=== PATIENT | male | born 1940 | race Hispanic/Latino ===

== ENCOUNTER 2016-11-22 10:04 | Emergency (ER) | payer OTHER, MEDICARE ==
[2016-11-22] MEDS ORDERED: ULTRAM PO ONE (13:04)
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
[2016-11-22 14:54] VITALS: BP 166/76
[2016-11-22] MEDS ORDERED: ANTIBIOTIC OINT TP ONE (16:00)
== END 2016-11-22 15:00 | disposition home or self-care (01) ==
LOC: ED 10:04
DX: S46.911A Strain of unspecified muscle, fascia and tendon at shoulder and upper arm level, right arm, initial encounter (principal); S86.911A Strain of unspecified muscle(s) and tendon(s) at lower leg level, right leg, initial encounter; S50.811A Abrasion of right forearm, initial encounter; I10 Essential (primary) hypertension; I50.9 Heart failure, unspecified; E11.9 Type 2 diabetes mellitus without complications; M19.90 Unspecified osteoarthritis, unspecified site; I25.10 Atherosclerotic heart disease of native coronary artery without angina pectoris; Z88.0 Allergy status to penicillin; Z90.3 Acquired absence of stomach [part of]; Z90.89 Acquired absence of other organs; Z87.891 Personal history of nicotine dependence; Z79.82 Long term (current) use of aspirin; V89.2XXA Person injured in unspecified motor-vehicle accident, traffic, initial encounter; W22.10XA Striking against or struck by unspecified automobile airbag, initial encounter; Y93.89 Activity, other specified; Y92.89 Other specified places as the place of occurrence of the external cause; Y99.8 Other external cause status
CPT/HCPCS: 99283

== ENCOUNTER 2019-02-13 22:51 | Emergency (ER) | payer MEDICARE, OTHER ==
--- NOTE | 2019-02-14 00:27 | XRay Report ---
LEFT FEMUR 2 VIEWS INDICATION / CLINICAL INFORMATION: Left femur pain COMPARISON: None available. FINDINGS: BONES / JOINT(S): There is a comminuted fracture of the distal femoral shaft at the level of the meta physis there is impaction at the fracture site. Patient has a [id number] amputation on the left. SOFT TISSUES: No significant abnormality. ADDITIONAL FINDINGS: None. Signer Name: Evan Bowers MD Signed: 02/14/2019 12:22 AM Workstation Name: [email or web address]
[2019-02-14] MEDS ORDERED: MORPHINE IM ONE (00:54)
--- NOTE | 2019-02-14 01:02 | Emergency Department Report ---
ED Lower Extremity HPI - General Chief Complaint: Extremity Injury, Lower Stated Complaint: LEFT KNEE PAIN Time Seen by Provider: 02/14/19 00:38 Source: patient, family Mode of arrival: Ambulatory Limitations: Physical Limitation - History of Present Illness Initial Comments: 78 yo M presents to ED with fall from standing and injury to left knee. Pt is s/p left BKA 6 yrs ago due to diabetic wound. Pt was wearing his prosthesis at the time of the fall tonight. Denies any other injuries. MD Complaint: knee injury -: hour(s) (2) Injury: Knee: Left Type of Injury: blunt Severity: severe Improves With: immobilization Worsens With: weight bearing, movement, palpation Context: fall Associated Symptoms: unable to bear weight - Related Data Home Medications Medication Instructions Recorded Confirmed Last Taken Aspirin EC [Halfprin EC] 81 mg PO DAILY 09/02/13 02/01/15 01/25/15 Carvedilol 25 mg PO BID 09/02/13 02/01/15 02/01/15 Gabapentin 300 mg PO DAILY 09/02/13 02/01/15 01/31/15 Lactobacillus Acidophilus 1 each PO DAILY 09/02/13 02/01/15 01/31/15 [Probiotic] Lisinopril 40 mg PO DAILY 09/02/13 02/01/15 01/31/15 Metformin HCl [Metformin] 500 mg PO QPM 09/02/13 02/01/15 01/31/15 Multivitamin [Multi-Vitamin Daily] 1 each PO DAILY 09/02/13 02/01/15 01/31/15 Sitagliptin Phosphate [Januvia] 100 mg PO DAILY 09/02/13 02/01/15 01/31/15 glyBURIDE [Glyburide] 5 mg PO BID 09/02/13 02/01/15 01/31/15 Famotidine 1 tab PO DAILY 01/25/15 02/01/15 01/31/15 Furosemide [Lasix] 5 mg PO QDAY 01/25/15 02/01/15 01/31/15 Glucosamine HCl 1 tab PO DAILY 01/25/15 02/01/15 01/31/15 Plavix 75 mg PO DAILY 01/25/15 02/01/15 01/25/15 Previous Rx's Medication Instructions Recorded Last Taken Type Lovastatin [Altoprev] 40 mg PO QPM #30 tab.er.24h 07/08/15 09/01/15 Rx Acetaminophen/Codeine [Tylenol 1 tab PO Q8H PRN #20 tab 11/22/16 Unknown Rx /Codeine # 3 tab] Capsaicin 42.5 gm TP TID PRN #1 tube 11/22/16 Unknown Rx Cyclobenzaprine [Flexeril] 10 mg PO BID PRN #20 tablet 11/22/16 Unknown Rx Allergies Allergy/AdvReac Type Severity Reaction Status Date / Time Penicillins Allergy Severe HIVES, Verified 11/22/16 10:57 ITCHING ED Review of Systems ROS: Stated complaint: LEFT KNEE PAIN Other details as noted in HPI Comment: All other systems reviewed and negative Musculoskeletal: as per HPI ED Past Medical Hx - Past Medical History Previous Medical History?: Yes Hx Hypertension: Yes Hx Heart Attack/AMI: No Hx Congestive Heart Failure: Yes Hx Diabetes: Yes Hx Deep Vein Thrombosis: No Hx Sickle Cell Disease: No Hx Arthritis: Yes Hx HIV: No Additional medical history: CAD. BLEEDING ULCERS - Surgical History Hx Coronary Stent: Yes (2004) Hx Open Heart Surgery: Yes ([facility]PASS) Hx Pacemaker: No Hx Internal Defibrillator: No Additional Surgical History: left BKA. Perforated ulcer with partial gastrectomy. RIGHT KNEE SURGERY. TONSILLECTOMY - Social History Smoking Status: Former Smoker Substance Use Type: None - Medications Home Medications: Home Medications Medication Instructions Recorded Confirmed Last Taken Type Aspirin EC [Halfprin EC] 81 mg PO DAILY 09/02/13 02/01/15 01/25/15 History Carvedilol 25 mg PO BID 09/02/13 02/01/15 02/01/15 History Gabapentin 300 mg PO DAILY 09/02/13 02/01/15 01/31/15 History Lactobacillus Acidophilus 1 each PO DAILY 09/02/13 02/01/15 01/31/15 History [Probiotic] Lisinopril 40 mg PO DAILY 09/02/13 02/01/15 01/31/15 History Metformin HCl [Metformin] 500 mg PO QPM 09/02/13 02/01/15 01/31/15 History Multivitamin [Multi-Vitamin Daily] 1 each PO DAILY 09/02/13 02/01/15 01/31/15 History Sitagliptin Phosphate [Januvia] 100 mg PO DAILY 09/02/13 02/01/15 01/31/15 History glyBURIDE [Glyburide] 5 mg PO BID 09/02/13 02/01/15 01/31/15 History Lovastatin [Altoprev] 40 mg PO QPM #30 tab.er.24h 12/07/14 02/01/15 01/31/15 Rx Famotidine 1 tab PO DAILY 01/25/15 02/01/15 01/31/15 History Furosemide [Lasix] 5 mg PO QDAY 01/25/15 02/01/15 01/31/15 History Glucosamine HCl 1 tab PO DAILY 01/25/15 02/01/15 01/31/15 History Plavix 75 mg PO DAILY 01/25/15 02/01/15 01/25/15 History Acetaminophen/Codeine [Tylenol 1 tab PO Q8H PRN #20 tab 11/22/16 Unknown Rx /Codeine # 3 tab] Capsaicin 42.5 gm TP TID PRN #1 tube 11/22/16 Unknown Rx Cyclobenzaprine [Flexeril] 10 mg PO BID PRN #20 tablet 11/22/16 Unknown Rx ED Physical Exam - General Limitations: Physical Limitation General appearance: alert, in no apparent distress - Head Head exam: Present: atraumatic, normocephalic - Eye Eye exam: Present: normal appearance - ENT ENT exam: Present: mucous membranes moist - Neck Neck exam: Present: normal inspection - Respiratory Respiratory exam: Present: normal lung sounds bilaterally. Absent: respiratory distress - Cardiovascular Cardiovascular Exam: Present: regular rate, normal rhythm - GI/Abdominal GI/Abdominal exam: Absent: distended - Extremities Exam Extremities exam: Present: other (left BKA present, tenderness to knee) - Neurological Exam Neurological exam: Present: alert, oriented X3 - Psychiatric Psychiatric exam: Present: normal affect, normal mood - Skin Skin exam: Present: warm, dry, intact, normal color ED Course Vital Signs 02/13/19 02/13/19 02/14/19 22:57 23:30 00:40 Temperature 97.5 F L 97.5 F L Pulse Rate 71 71 Respiratory 16 16 Rate Blood Pressure 139/74 139/74 Blood Pressure [Left] O2 Sat by Pulse 96 95 97 Oximetry 02/14/19 02/14/19 02/14/19 00:45 01:00 01:15 Temperature 97.6 F Pulse Rate 65 Respiratory 16 Rate Blood Pressure 145/77 145/77 141/76 Blood Pressure 145/77 [Left] O2 Sat by Pulse 97 96 95 Oximetry 02/14/19 02/14/19 02/14/19 01:30 01:46 02:00 Temperature Pulse Rate Respiratory Rate Blood Pressure 141/76 133/72 133/72 Blood Pressure [Left] O2 Sat by Pulse 97 96 97 Oximetry 02/14/19 02/14/19 02/14/19 02:26 02:30 02:31 Temperature Pulse Rate 56 L Respiratory 16 Rate Blood Pressure 141/76 95/55 Blood Pressure 95/55 [Left] O2 Sat by Pulse 94 98 Oximetry - Reevaluation(s) Reevaluation #1: 02/14/19 02:22 BP dropped following morphine administration. IV fluid bolus ordered. - Consultations Consultation #1: 02/14/19 01:34 Spoke w/ [facility] transfer line. Pt accepted by trauma attending Dr Huggins to the ED for ortho evaluation. 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 Pt transferred to [facility] ED for ortho evaluation of comminuted distal femur fracture. - Differential Diagnosis fracture, contusion Critical care attestation.: If time is entered above; I have spent that time in minutes in the direct care of this critically ill patient, excluding procedure time. ED Disposition Clinical Impression: Closed fracture of distal end of left femur Disposition: DC/TX-70 ANOTHER TYPE HLTHCARE Is pt being admited?: No Condition: Stable Referrals: PRIMARY CARE, [Primary Care Provider] - 3-5 Days Time of Disposition: 01:37
[2019-02-14] MEDS ORDERED: NACL 0.9% 500 ML 500 ML IV ONE (02:23)
[2019-02-14] MEDS ORDERED: NACL 0.9% 500 ML 500 ML ONE (02:24)
[2019-02-14 02:31] VITALS: BP 95/55
== END 2019-02-14 02:48 | disposition other institution (70) ==
LOC: ED 22:51
DX: S72.402A Unspecified fracture of lower end of left femur, initial encounter for closed fracture (principal); W18.30XA Fall on same level, unspecified, initial encounter; Y93.89 Activity, other specified; Y92.89 Other specified places as the place of occurrence of the external cause; Y99.8 Other external cause status
CPT/HCPCS: 73552; 96372; 99285; J2270; J7040

== ENCOUNTER 2019-04-16 14:33 | Inpatient (IN) | payer MEDICARE ==
--- NOTE | 2019-04-16 14:58 | Event Note ---
ED Screening Note Date of service: 04/16/19 Time: 14:56 ED Screening Note: 78 y o male presents with severe watery loose stools, non bloody x 2 days one episode of vomitting DM, HTN, recent leg surgery This initial assessment/diagnostic orders/clinical plan/treatment(s) is/are subject to change based on patients health status, clinical progression and re- assessment by fellow clinical providers in the ED. Further treatment and workup at subsequent clinical providers discretion. Patient/guardian urged not to elope from the ED as their condition may be serious if not clinically assessed and managed. Initial orders include: labs IVF acc eval
[2019-04-16 17:31] LABS: Basophils % (Auto) 0.4 % (0.0-1.8); Eosinophils # (Auto) 0.2 K/mm3 (0.0-0.4); Eosinophils % (Auto) 2.7 % (0.0-4.3); Hematocrit 43.9 % (35.5-45.6); Hemoglobin 14.4 gm/dl (11.8-15.2); Lymphocytes # (Auto) 0.9 K/mm3 (1.2-5.4); Lymphocytes % (Auto) 10.7 % (13.4-35.0); Mean Corpuscular HGB Conc 33 % (32-34); Mean Corpuscular Volume 95 fl (84-94); Monocytes # (Auto) 0.5 K/mm3 (0.0-0.8); Monocytes % (Auto) 6.1 % (0.0-7.3); Platelet Count 303 K/mm3 (140-440); Red Blood Count 4.63 M/mm3 (3.65-5.03); Red Cell Distribution Width 14.1 % (13.2-15.2)
[2019-04-16 17:47] LABS: Albumin 3.9 g/dL (3.9-5); Calcium 9.9 mg/dL (8.4-10.2)
--- NOTE | 2019-04-16 20:39 | Emergency Department Report ---
ED General Adult HPI - General Chief complaint: Nausea/Vomiting/Diarrhea Stated complaint: DEHYDRATED Time Seen by Provider: 04/16/19 20:10 Source: patient Mode of arrival: Wheelchair Limitations: No Limitations - History of Present Illness Initial comments: Is a 78-year-old male that presents emergency room with complaints of dehydration, dry mouth and diarrhea. Patient states had diarrhea 5 days. Patient denies abdominal pain. Patient denies chest pain. Patient denies shortness of breath. Patient denies blood in the stool. Patient denies nausea vomiting. Patient denies recent antibiotic use. Patient states his baseline creatinine is 1.2. -: Sudden, days(s) Consistency: constant Improves with: rest Worsens with: movement Associated Symptoms: loss of appetite. denies: confusion, chest pain, cough, diaphoresis, fever/chills, headaches, malaise, nausea/vomiting, rash, seizure, shortness of breath, syncope, weakness - Related Data Home Medications Medication Instructions Recorded Confirmed Last Taken Aspirin EC [Halfprin EC] 81 mg PO DAILY 09/02/13 04/16/19 01/25/15 Gabapentin 400 mg PO TID 09/02/13 04/16/19 01/31/15 Lactobacillus Acidophilus 1 each PO DAILY 09/02/13 04/16/19 01/31/15 [Probiotic] Lisinopril 10 mg PO DAILY 09/02/13 04/16/19 01/31/15 Metformin HCl [Metformin] 500 mg PO QPM 09/02/13 04/16/19 01/31/15 Multivitamin [Multi-Vitamin Daily] 1 each PO DAILY 09/02/13 04/16/19 01/31/15 Furosemide [Lasix] 20 mg PO QDAY 01/25/15 04/16/19 01/31/15 Apixaban [Eliquis] 5 mg PO BID 04/16/19 04/16/19 Unknown Januvia 100 mg PO DAILY 04/16/19 04/16/19 Unknown Lovastatin [Altoprev] 20 mg PO QPM 04/16/19 04/16/19 Unknown Metoprolol 25 mg PO DAILY 04/16/19 04/16/19 Unknown amLODIPine [Norvasc] 5 mg PO DAILY 04/16/19 04/16/19 Unknown glipiZIDE 5 mg PO DAILY 04/16/19 04/16/19 Unknown Previous Rx's Medication Instructions Recorded Last Taken Type Acetaminophen/Codeine [Tylenol 1 tab PO Q8H PRN #20 tab 11/22/16 Unknown Rx /Codeine # 3 tab] Allergies Allergy/AdvReac Type Severity Reaction Status Date / Time Penicillins Allergy Severe HIVES, Verified 11/22/16 10:57 ITCHING ED Review of Systems ROS: Stated complaint: DEHYDRATED Other details as noted in HPI Constitutional: denies: chills, fever Eyes: denies: eye pain, eye discharge, vision change ENT: denies: ear pain, throat pain Respiratory: denies: cough, shortness of breath, wheezing Cardiovascular: denies: chest pain, palpitations Endocrine: no symptoms reported Gastrointestinal: diarrhea. denies: abdominal pain, nausea Genitourinary: denies: urgency, dysuria Musculoskeletal: denies: back pain, joint swelling, arthralgia Skin: denies: rash, lesions Neurological: denies: headache, weakness, paresthesias Psychiatric: denies: anxiety, depression Hematological/Lymphatic: denies: easy bleeding, easy bruising ED Past Medical Hx - Past Medical History Previous Medical History?: Yes Hx Hypertension: Yes Hx Heart Attack/AMI: No Hx Congestive Heart Failure: Yes Hx Diabetes: Yes Hx Deep Vein Thrombosis: No Hx Sickle Cell Disease: No Hx Arthritis: Yes Hx HIV: No Additional medical history: CAD. BLEEDING ULCERS - Surgical History Past Surgical History?: Yes Hx Coronary Stent: Yes (2004) Hx Open Heart Surgery: Yes ([facility]) Hx Pacemaker: No Hx Internal Defibrillator: No Additional Surgical History: left BKA. Perforated ulcer with partial gastrectomy. RIGHT KNEE SURGERY. TONSILLECTOMY - Family History Family history: no significant - Social History Smoking Status: Never Smoker Substance Use Type: None - Medications Home Medications: Home Medications Medication Instructions Recorded Confirmed Last Taken Type Aspirin EC [Halfprin EC] 81 mg PO DAILY 09/02/13 04/16/19 01/25/15 History Gabapentin 400 mg PO TID 09/02/13 04/16/19 01/31/15 History Lactobacillus Acidophilus 1 each PO DAILY 09/02/13 04/16/19 01/31/15 History [Probiotic] Lisinopril 10 mg PO DAILY 09/02/13 04/16/19 01/31/15 History Metformin HCl [Metformin] 500 mg PO QPM 09/02/13 04/16/19 01/31/15 History Multivitamin [Multi-Vitamin Daily] 1 each PO DAILY 09/02/13 04/16/19 01/31/15 History Furosemide [Lasix] 20 mg PO QDAY 01/25/15 04/16/19 01/31/15 History Acetaminophen/Codeine [Tylenol 1 tab PO Q8H PRN #20 tab 11/22/16 04/16/19 Unknown Rx /Codeine # 3 tab] Apixaban [Eliquis] 5 mg PO BID 04/16/19 04/16/19 Unknown History Januvia 100 mg PO DAILY 04/16/19 04/16/19 Unknown History Lovastatin [Altoprev] 20 mg PO QPM 04/16/19 04/16/19 Unknown History Metoprolol 25 mg PO DAILY 04/16/19 04/16/19 Unknown History amLODIPine [Norvasc] 5 mg PO DAILY 04/16/19 04/16/19 Unknown History glipiZIDE 5 mg PO DAILY 04/16/19 04/16/19 Unknown History ED Physical Exam - General Limitations: No Limitations General appearance: alert, in no apparent distress - Head Head exam: Present: atraumatic, normocephalic - Eye Eye exam: Present: normal appearance - ENT ENT exam: Present: mucous membranes moist - Neck Neck exam: Present: normal inspection - Respiratory Respiratory exam: Present: normal lung sounds bilaterally. Absent: respiratory distress - Cardiovascular Cardiovascular Exam: Present: regular rate, normal rhythm. Absent: systolic murmur, diastolic murmur, rubs, gallop - GI/Abdominal GI/Abdominal exam: Present: soft, normal bowel sounds - Rectal Rectal exam: Present: deferred - Extremities Exam Extremities exam: Present: normal inspection - Back Exam Back exam: Present: normal inspection - Neurological Exam Neurological exam: Present: alert, oriented X3 - Psychiatric Psychiatric exam: Present: normal affect, normal mood - Skin Skin exam: Present: warm, dry, intact, normal color. Absent: rash ED Course Vital Signs 04/16/19 04/16/19 04/16/19 14:56 14:58 22:12 Temperature 97.3 F L Pulse Rate 75 87 91 H Respiratory 18 17 15 Rate Blood Pressure 94/53 124/49 [Right] O2 Sat by Pulse 100 100 98 Oximetry 04/16/19 22:13 Temperature Pulse Rate Respiratory 15 Rate Blood Pressure [Right] O2 Sat by Pulse Oximetry - Reevaluation(s) Reevaluation #1: Evaluation done. Patient found to be hypotensive and hypoxic on initial exam. Patient resting comfortable. Patient will be given fluids. Patient placed on oxygen. 04/16/19 20:20 Reevaluation #2: I discussed all results with patient. I discussed plan of care patient. Patient agrees plan of care and admission. Patient will be admitted to the hospital service. Since oxygen has improved. Patient's blood pressure improved with minimal amount of fluids. Patient's current blood pressure 120/80. 04/16/19 20:59 - Consultations Consultation #1: Hospitalist consult for admission. Hospitalist to admit patient. Bridge orders place. 04/16/19 21:05 ED Medical Decision Making - Lab Data Result diagrams: 04/16/19 16:34 04/16/19 16:34 - EKG Data -: EKG Interpreted by Me EKG shows normal: sinus rhythm, axis, intervals, QRS complexes, ST-T waves Rate: normal - EKG Data Interpretation: [facility] - Medical Decision Making Patient is a 78-year-old male that presents emergency room with complaints of dehydration and 5 days of diarrhea. On initial evaluation patient found to have hypotension and hypoxia. Patient had labs done and were consistent with hyperkalemia and dehydration. Patient also found to have acute on chronic renal insufficiency. Patient given fluids and his blood pressure improved. Patient admitted to the hospitalist service. Patient admitted to the stepdown ICU. - Differential Diagnosis hypotension. Dehydration. Renal insufficiency. Diarrhea. Critical Care Time: Yes Critical care time in (mins) excluding proc time.: 35 Critical care attestation.: If time is entered above; I have spent that time in minutes in the direct care of this critically ill patient, excluding procedure time. Critical Care Time: 35 minutes ED Disposition Clinical Impression: Acute on chronic renal insufficiency, Hypoxia, Hyperkalemia, Metabolic acidosis Hypotension Qualifiers: Hypotension type: unspecified hypotension type Qualified Code(s): I95.9 - Hypotension, unspecified Diarrhea Qualifiers: Diarrhea type: unspecified type Qualified Code(s): R19.7 - Diarrhea, unspecified Disposition: 09 OP ADMIT IP TO THIS HOSP Is pt being admited?: Yes Does the pt Need Aspirin: No Condition: Critical Time of Disposition: 20:59
[2019-04-16] MEDS ORDERED: SODIUM CHLORIDE 0.9% 500 ML 500 ML IV ONE (20:41)
[2019-04-16] MEDS ORDERED: SODIUM CHLORIDE 0.9% 1000 ML 1,000 ML ONE (20:52)
[2019-04-16] MEDS ORDERED: CALCIUM CHLORIDE 1,000 MG in SODIUM CHLORIDE 0.9% 100 ML IV ONE (21:15)
[2019-04-16] MEDS ORDERED: SODIUM POLYSTYRENE 15 GM/60 ML ORAL LIQD PO ONE (21:16)
[2019-04-16] MEDS ORDERED: SODIUM POLYSTYRENE 15 GM/60 ML ORAL LIQD ONE (21:59)
[2019-04-16] MEDS ORDERED: ACETAMINOPHEN 325 MG TAB PO PRN (22:57)
[2019-04-16] MEDS ORDERED: DEXTROSE 50% IN WATER (25GM) 50 ML SYRINGE IV PRN (22:57)
[2019-04-16] MEDS ORDERED: ONDANSETRON 4 MG/2 ML INJ IV PRN (22:57)
[2019-04-16] MEDS ORDERED: MAGNESIUM HYDROXIDE (MOM) ORAL LIQD UDC PO PRN (22:57)
[2019-04-16] MEDS ORDERED: SODIUM CHLORIDE 0.9% 1000 ML 1,000 ML IV SCH (23:00)
--- NOTE | 2019-04-17 02:46 | History and Physical Report ---
History of Present Illness Date of examination: 04/16/19 Date of admission: 04/16/19 21:18 Chief complaint: Diarrhea History of present illness: Patient is a 78-year-old male with known history of diabetes mellitus, peripheral neuropathy, coronary artery disease with CABG in the past, and hyperlipidemia. He presented to the emergency room today complaining of diar jhony over the past few days. He denies any bright red blood per rectum, denies any abdominal pain. Denies any fever or chills. No recent use of antibiotics and no recent travel. He has had some nausea and vomiting and also also had some dry mouth. Upon arrival in the emergency room patient work-up was significant for dehydration, he was slightly hypotensive, and was found to be hyperkalemic on the lab tests. Patient was placed on IV fluid. Past History Past Medical History: CAD, diabetes, hypertension, hyperlipidemia Past Surgical History: CABG, Other (Perforated ulcer with partial gastrectomy. RIGHT KNEE SURGERY. TONSILLECTOMY) Social history: no significant social history Family history: diabetes (Grandfather had diabetes) Medications and Allergies Allergies Allergy/AdvReac Type Severity Reaction Status Date / Time Penicillins Allergy Severe HIVES, Verified 11/22/16 10:57 ITCHING Home Medications Medication Instructions Recorded Confirmed Last Taken Type Aspirin EC [Halfprin EC] 81 mg PO DAILY 09/02/13 04/16/19 01/25/15 History Gabapentin 400 mg PO TID 09/02/13 04/16/19 01/31/15 History Lactobacillus Acidophilus 1 each PO DAILY 09/02/13 04/16/19 01/31/15 History [Probiotic] Lisinopril 10 mg PO DAILY 09/02/13 04/16/19 01/31/15 History Metformin HCl [Metformin] 500 mg PO QPM 09/02/13 04/16/19 01/31/15 History Multivitamin [Multi-Vitamin Daily] 1 each PO DAILY 09/02/13 04/16/19 01/31/15 History Furosemide [Lasix] 20 mg PO QDAY 01/25/15 04/16/19 01/31/15 History Acetaminophen/Codeine [Tylenol 1 tab PO Q8H PRN #20 tab 11/22/16 04/16/19 Unknown Rx /Codeine # 3 tab] Apixaban [Eliquis] 5 mg PO BID 04/16/19 04/16/19 Unknown History Januvia 100 mg PO DAILY 04/16/19 04/16/19 Unknown History Lovastatin [Altoprev] 20 mg PO QPM 04/16/19 04/16/19 Unknown History Metoprolol 25 mg PO DAILY 04/16/19 04/16/19 Unknown History amLODIPine [Norvasc] 5 mg PO DAILY 04/16/19 04/16/19 Unknown History glipiZIDE 5 mg PO DAILY 04/16/19 04/16/19 Unknown History Active Meds: Active Medications Acetaminophen (Tylenol) 650 mg PO Q6H PRN PRN Reason: Pain MILD(1-3)/Fever >100.5/RIOS Dextrose (D50w (25gm) Syringe) 0 ml IV Q30MIN PRN; Protocol PRN Reason: Hypoglycemia Sodium Chloride (Nacl 0.9% 1000 Ml) 1,000 mls @ 125 mls/hr IV DIRECT GISSELL Insulin Human Regular (Humulin R) 0 units SUB-Q ACHS GISSELL; Protocol Magnesium Hydroxide (Milk Of Magnesia) 30 ml PO Q4H PRN PRN Reason: Constipation Ondansetron HCl (Zofran) 4 mg IV Q8H PRN PRN Reason: Nausea And Vomiting Sodium Chloride (Sodium Chloride Flush Syringe 10 Ml) 10 ml IV BID GISSELL Sodium Chloride (Sodium Chloride Flush Syringe 10 Ml) 10 ml IV PRN PRN PRN Reason: LINE FLUSH Review of Systems Gastrointestinal: diarrhea Exam - Constitutional Vitals: Temp Pulse Resp BP Pulse Ox 97.3 F L 87 14 120/61 94 04/16/19 14:56 04/17/19 01:30 04/17/19 01:30 04/17/19 01:30 04/17/19 00:30 General appearance: Present: no acute distress, mild distress - EENT Eyes: Present: PERRL, EOM intact ENT: hearing intact, clear oral mucosa, dentition normal - Neck Neck: Present: supple, normal ROM - Respiratory Respiratory effort: normal Respiratory: bilateral: CTA - Cardiovascular Rhythm: regular Heart Sounds: Present: S1 & S2 - Extremities Extremities: no ischemia, pulses intact, No edema, Full ROM - Abdominal General gastrointestinal: Present: soft, non-tender, non-distended - Integumentary Integumentary: Present: clear, warm, dry - Musculoskeletal Musculoskeletal: strength equal bilaterally, other (Left below-knee amputation) - Psychiatric Psychiatric: appropriate mood/affect, intact judgment & insight, cooperative - Neurologic Neurologic: CNII-XII intact, moves all extremities Results - Labs CBC & Chem 7: 04/17/19 04:38 04/17/19 00:20 Labs: Abnormal lab results 04/16/19 04/16/19 Range/Units 16:34 16:34 MCV 95 H (84-94) fl Lymph % (Auto) 10.7 L (13.4-35.0) % Lymph # 0.9 L (1.2-5.4) K/mm3 Seg Neutrophils % 80.1 H (40.0-70.0) % Sodium 136 L (137-145) mmol/L Potassium 5.9 H (3.6-5.0) mmol/L Carbon Dioxide 20 L (22-30) mmol/L BUN 65 H (9-20) mg/dL Creatinine 1.9 H (0.8-1.5) mg/dL Glucose 131 H (75-100) mg/dL Alkaline Phosphatase 165 H (35-129) units/L Assessment and Plan - Patient Problems (1) Hypotension Current Visit: Yes Status: Acute Qualifiers: Hypotension type: unspecified hypotension type Qualified Code(s): I95.9 - Hypotension, unspecified Plan to address problem: Patient placed on IV fluid I will monitor vital signs closely. (2) Hyperkalemia Current Visit: Yes Status: Acute Plan to address problem: Patient has had calcium gluconate and Kayexalate in the emergency room. Will monitor potassium level and also monitor EKG. (3) CAD (coronary artery disease) Current Visit: No Status: Chronic Plan to address problem: We will continue patient on his routine home medications. He denies any chest pain. (4) Diabetes mellitus Current Visit: No Status: Chronic Plan to address problem: We will monitor Accu-Cheks closely and continue routine home medications. (5) Hyperlipemia Current Visit: No Status: Chronic Plan to address problem: We will monitor lipid profile. Continue routine home medications. (6) Acute on chronic renal insufficiency Current Visit: Yes Status: Acute Plan to address problem: Possibly secondary to the diarrhea. (7) DVT prophylaxis Current Visit: No Status: Acute Plan to address problem: Patient placed on subcutaneous heparin. (8) Full code status Current Visit: Yes Status: Acute
[2019-04-17 05:55] LABS: Basophils % (Auto) 0.6 % (0.0-1.8); Eosinophils # (Auto) 0.3 K/mm3 (0.0-0.4); Eosinophils % (Auto) 6.4 % (0.0-4.3); Hematocrit 38.2 % (35.5-45.6); Hemoglobin 12.7 gm/dl (11.8-15.2); Lymphocytes # (Auto) 1.6 K/mm3 (1.2-5.4); Lymphocytes % (Auto) 32.2 % (13.4-35.0); Mean Corpuscular HGB Conc 33 % (32-34); Mean Corpuscular Volume 95 fl (84-94); Monocytes # (Auto) 0.6 K/mm3 (0.0-0.8); Monocytes % (Auto) 12.8 % (0.0-7.3); Platelet Count 229 K/mm3 (140-440); Red Blood Count 4.01 M/mm3 (3.65-5.03); Red Cell Distribution Width 14.2 % (13.2-15.2)
[2019-04-17 06:08] LABS: INR 1.15 (0.87-1.13)
[2019-04-17 06:09] LABS: Partial Thromboplastin Time 31.6 Sec. (24.2-36.6)
[2019-04-17 06:29] LABS: Calcium 9.6 mg/dL (8.4-10.2)
[2019-04-17] MEDS: INSULIN REGULAR, HUMAN 100 UNITS/1 ML SUB-Q SCH ×4 (08:30→22:07)
[2019-04-17] MEDS: ASPIRIN EC 81 MG TAB PO SCH (09:24)
[2019-04-17] MEDS: APIXABAN 5 MG TAB PO SCH ×2 (09:24→21:02)
[2019-04-17] MEDS: ACETAMINOPHEN W/CODEINE 300-30 MG TAB PO PRN (09:26)
[2019-04-17] MEDS ORDERED: MULTIVITAMIN PO SCH (10:00)
[2019-04-17] MEDS ORDERED: LACTOBACILLUS ACIDOPHILUS PO SCH (10:00)
[2019-04-17] MEDS ORDERED: JANUVIA 100 MG PO SCH (10:00)
[2019-04-17] MEDS: MULTIVITAMINS ,THERAPEUTIC TAB PO SCH (11:21)
[2019-04-17] MEDS: LACTINEX CHEW TAB PO SCH (11:21)
[2019-04-17] MEDS: LINAGLIPTIN 5 MG TAB PO SCH (11:22)
[2019-04-17] MEDS: GABAPENTIN 300 MG CAP PO SCH ×2 (14:31→21:02)
--- NOTE | 2019-04-17 14:37 | Progress Note ---
Assessment and Plan / Hypotension with diarrhea Patient placed on IV fluid, will monitor vital signs closely. monitor BMP, hold BP med cont abx, order stool study / Hyperkalemia, resolved Patient has had calcium gluconate and Kayexalate in the emergency room. Will monitor potassium level and also monitor EKG. / CAD (coronary artery disease) We will continue patient on his routine home medications. He denies any chest pain. / Diabetes mellitus We will monitor with Accu-Cheks closely and continue routine home medications. / Hyperlipemia We will monitor lipid profile. Continue routine home medications. / Acute on chronic renal insufficiency Possibly secondary to the diarrhea. cont iv fluid /Chronic atrial fib - rate controlled, on eliquis / DVT prophylaxis Patient placed on eliquis /Full code status Subjective Date of service: 04/17/19 Interval history: Patient seen and examined c/o multiple diarrhea tolerating diet, denies chest pain family at bedside Objective - Constitutional Vitals: Vital Signs - 12hr 04/17/19 04/17/19 04/17/19 03:31 04:00 04:29 Temperature 98.1 F Pulse Rate 81 76 Pulse Rate [ From Monitor] Respiratory 16 18 18 Rate Blood Pressure 81/41 121/58 O2 Sat by Pulse 95 96 Oximetry 04/17/19 04/17/19 04/17/19 04:31 05:31 06:00 Temperature Pulse Rate 75 70 82 Pulse Rate [ From Monitor] Respiratory 17 15 15 Rate Blood Pressure 121/58 88/27 104/55 O2 Sat by Pulse 96 96 97 Oximetry 04/17/19 04/17/19 04/17/19 06:31 07:00 07:31 Temperature Pulse Rate 80 76 77 Pulse Rate [ From Monitor] Respiratory 15 17 21 Rate Blood Pressure 104/55 98/53 104/55 O2 Sat by Pulse 96 96 97 Oximetry 04/17/19 04/17/19 04/17/19 08:00 08:31 09:00 Temperature 98.0 F Pulse Rate 89 95 H 93 H Pulse Rate [ 90 From Monitor] Respiratory 9 L 15 21 Rate Blood Pressure 110/62 128/53 96/53 O2 Sat by Pulse 99 98 96 Oximetry 04/17/19 04/17/19 04/17/19 09:31 10:00 10:31 Temperature Pulse Rate 88 80 81 Pulse Rate [ From Monitor] Respiratory 21 17 16 Rate Blood Pressure 96/53 84/42 84/42 O2 Sat by Pulse 97 94 96 Oximetry 04/17/19 04/17/19 04/17/19 11:00 11:31 12:00 Temperature Pulse Rate 81 67 70 Pulse Rate [ 72 From Monitor] Respiratory 17 24 18 Rate Blood Pressure 88/48 84/42 112/57 O2 Sat by Pulse 97 98 Oximetry 04/17/19 04/17/19 04/17/19 12:31 13:00 13:31 Temperature Pulse Rate 84 73 82 Pulse Rate [ From Monitor] Respiratory 13 15 19 Rate Blood Pressure 112/57 111/57 111/57 O2 Sat by Pulse 98 97 97 Oximetry 04/17/19 14:00 Temperature Pulse Rate 86 Pulse Rate [ From Monitor] Respiratory 20 Rate Blood Pressure 107/55 O2 Sat by Pulse 98 Oximetry General appearance: Present: no acute distress, well-nourished - EENT Eyes: PERRL, EOM intact ENT: hearing intact, clear oral mucosa Ears: bilateral: normal - Neck Neck: supple, normal ROM - Respiratory Respiratory effort: normal Respiratory: bilateral: CTA - Cardiovascular Rhythm: regular Heart Sounds: Present: S1 & S2. Absent: gallop, rub Extremities: pulses intact, No edema, normal color, Full ROM Extremity abnormal: other (left BKA) - Gastrointestinal General gastrointestinal: Present: soft, non-tender, non-distended, normal bowel sounds - Integumentary Integumentary: clear, warm, dry - Musculoskeletal Musculoskeletal: 1, strength equal bilaterally - Neurologic Neurologic: moves all extremities - Psychiatric Psychiatric: memory intact, appropriate mood/affect, intact judgment & insight - Labs CBC & Chem 7: 04/17/19 04:38 04/18/19 06:57 Labs: Abnormal lab results 04/16/19 04/16/19 04/17/19 Range/Units 16:34 16:34 04:38 MCV 95 H 95 H (84-94) fl Lymph % (Auto) 10.7 L (13.4-35.0) % [place] % (Auto) 12.8 H (0.0-7.3) % Eos % (Auto) 6.4 H (0.0-4.3) % Lymph # 0.9 L (1.2-5.4) K/mm3 Seg Neutrophils % 80.1 H (40.0-70.0) % INR (0.87-1.13) Sodium 136 L (137-145) mmol/L Potassium 5.9 H (3.6-5.0) mmol/L Chloride (98-107) mmol/L Carbon Dioxide 20 L (22-30) mmol/L BUN 65 H (9-20) mg/dL Creatinine 1.9 H (0.8-1.5) mg/dL Glucose 131 H (75-100) mg/dL POC Glucose (70-105) Alkaline Phosphatase 165 H (35-129) units/L 04/17/19 04/17/19 04/17/19 Range/Units 04:38 04:38 08:04 MCV (84-94) fl Lymph % (Auto) (13.4-35.0) % [place] % (Auto) (0.0-7.3) % Eos % (Auto) (0.0-4.3) % Lymph # (1.2-5.4) K/mm3 Seg Neutrophils % (40.0-70.0) % INR 1.15 H (0.87-1.13) Sodium (137-145) mmol/L Potassium (3.6-5.0) mmol/L Chloride 110.3 H (98-107) mmol/L Carbon Dioxide 14 L (22-30) mmol/L BUN 70 H (9-20) mg/dL Creatinine 2.5 H (0.8-1.5) mg/dL Glucose (75-100) mg/dL POC Glucose 108 H (70-105) Alkaline Phosphatase (35-129) units/L 04/17/19 Range/Units 12:14 MCV (84-94) fl Lymph % (Auto) (13.4-35.0) % [place] % (Auto) (0.0-7.3) % Eos % (Auto) (0.0-4.3) % Lymph # (1.2-5.4) K/mm3 Seg Neutrophils % (40.0-70.0) % INR (0.87-1.13) Sodium (137-145) mmol/L Potassium (3.6-5.0) mmol/L Chloride (98-107) mmol/L Carbon Dioxide (22-30) mmol/L BUN (9-20) mg/dL Creatinine (0.8-1.5) mg/dL Glucose (75-100) mg/dL POC Glucose 128 H (70-105) Alkaline Phosphatase (35-129) units/L
[2019-04-17] MEDS: metroNIDAZOLE 500 MG TAB PO SCH ×2 (16:10→21:01)
[2019-04-17] MEDS: levoFLOXacin 250 MG TAB PO SCH (16:11)
[2019-04-17] MEDS ORDERED: LOVASTATIN 20 MG PO SCH (18:00)
[2019-04-17] MEDS: PRAVASTATIN 20 MG TAB PO SCH (21:01)
[2019-04-18] MEDS: SODIUM CHLORIDE 0.9% 1000 ML 1,000 ML IV SCH ×2 (02:45→13:01)
[2019-04-18] MEDS: metroNIDAZOLE 500 MG TAB PO SCH ×3 (05:52→21:22)
[2019-04-18 08:27] LABS: Calcium 8.5 mg/dL (8.4-10.2)
[2019-04-18] MEDS ORDERED: GABAPENTIN 400 MG CAP PO SCH ×2 (09:00→11:34)
[2019-04-18] MEDS: INSULIN REGULAR, HUMAN 100 UNITS/1 ML SUB-Q SCH ×4 (09:05→22:58)
[2019-04-18] MEDS: ASPIRIN EC 81 MG TAB PO SCH (09:06)
[2019-04-18] MEDS: APIXABAN 5 MG TAB PO SCH ×2 (09:06→21:22)
[2019-04-18] MEDS: LACTINEX CHEW TAB PO SCH (09:06)
[2019-04-18] MEDS: LINAGLIPTIN 5 MG TAB PO SCH (09:07)
[2019-04-18] MEDS: levoFLOXacin 250 MG TAB PO SCH (09:07)
[2019-04-18] MEDS: MULTIVITAMINS ,THERAPEUTIC TAB PO SCH (09:07)
[2019-04-18] MEDS ORDERED: GABAPENTIN 100 MG CAP PO SCH (11:45)
--- NOTE | 2019-04-18 13:59 | Progress Note ---
Assessment and Plan / Hypotension with diarrhea Patient placed on IV fluid, will monitor vital signs closely. monitor BMP, cont to hold BP med cont abx, ordered stool study - will follow / Hyperkalemia, resolved Patient has had calcium gluconate and Kayexalate in the emergency room. monitor potassium level and also monitor EKG. / CAD (coronary artery disease) continue patient on his routine home medications. He denies any chest pain. / Diabetes mellitus type 2 monitor with Accu-Cheks closely and continue routine home medications. / Hyperlipemia Continue routine home medications. / Acute on ? chronic renal insufficiency Possibly secondary to the diarrhea - vasomotor nephropathy. 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 he was told his cr is 1.3 /Chronic atrial fib - rate controlled, on eliquis / DVT prophylaxis Patient placed on eliquis /Full code status Disposition: home when renal function stabilizes Subjective Date of service: 04/18/19 Interval history: Patient seen and examined resolved diarrhea tolerating diet, denies chest pain family at bedside Objective - Exam Narrative Exam: General appearance: Present: no acute distress, well-nourished - EENT Eyes: PERRL, EOM intact ENT: hearing intact, clear oral mucosa Ears: bilateral: normal - Neck Neck: supple, normal ROM - Respiratory Respiratory effort: normal Respiratory: bilateral: CTA - Cardiovascular Rhythm: regular Heart Sounds: Present: S1 & S2. Absent: gallop, rub Extremities: pulses intact, No edema, normal color, Full ROM Extremity abnormal: other (left BKA) - Gastrointestinal General gastrointestinal: Present: soft, non-tender, non-distended, normal bowel sounds - Integumentary Integumentary: clear, warm, dry - Musculoskeletal Musculoskeletal: 1, strength equal bilaterally - Neurologic Neurologic: moves all extremities - Psychiatric Psychiatric: memory intact, appropriate mood/affect, intact judgment & insight - Constitutional Vitals: Vital Signs - 12hr 04/18/19 04/18/19 04/18/19 04:45 07:45 08:02 Temperature 98.0 F 98.6 F Pulse Rate 67 62 Respiratory 18 18 18 Rate Blood Pressure 119/52 128/55 O2 Sat by Pulse 97 97 96 Oximetry 04/18/19 04/18/19 10:00 12:03 Temperature 98.2 F Pulse Rate 64 72 Respiratory 18 Rate Blood Pressure 135/62 O2 Sat by Pulse 98 Oximetry - Labs CBC & Chem 7: 04/17/19 04:38 04/19/19 00:48 Labs: Abnormal lab results 04/17/19 04/17/19 04/18/19 Range/Units 16:51 23:30 06:57 Chloride 110.6 H (98-107) mmol/L Carbon Dioxide 15 L (22-30) mmol/L BUN 68 H (9-20) mg/dL Creatinine 2.1 H (0.8-1.5) mg/dL Glucose 130 H (75-100) mg/dL POC Glucose 133 H 124 H (70-105) 04/18/19 04/18/19 Range/Units 07:57 12:15 Chloride (98-107) mmol/L Carbon Dioxide (22-30) mmol/L BUN (9-20) mg/dL Creatinine (0.8-1.5) mg/dL Glucose (75-100) mg/dL POC Glucose 136 H 186 H (70-105)
[2019-04-18] MEDS: GABAPENTIN 100 MG CAP PO SCH ×2 (15:19→21:22)
[2019-04-18] MEDS: ACETAMINOPHEN W/CODEINE 300-30 MG TAB PO PRN (21:22)
[2019-04-18] MEDS: PRAVASTATIN 20 MG TAB PO SCH (21:22)
[2019-04-19 01:28] LABS: Calcium 8.3 mg/dL (8.4-10.2)
[2019-04-19] MEDS: metroNIDAZOLE 500 MG TAB PO SCH ×3 (06:38→21:36)
[2019-04-19] MEDS: SODIUM CHLORIDE 0.9% 1000 ML 1,000 ML IV SCH (06:39)
[2019-04-19] MEDS: ASPIRIN EC 81 MG TAB PO SCH (10:26)
[2019-04-19] MEDS: LACTINEX CHEW TAB PO SCH (10:26)
[2019-04-19] MEDS: MULTIVITAMINS ,THERAPEUTIC TAB PO SCH (10:26)
[2019-04-19] MEDS: levoFLOXacin 250 MG TAB PO SCH (10:26)
[2019-04-19] MEDS: APIXABAN 5 MG TAB PO SCH ×2 (10:26→21:37)
[2019-04-19] MEDS: LINAGLIPTIN 5 MG TAB PO SCH (10:26)
[2019-04-19] MEDS: amLODIPine 5 MG TAB PO SCH (10:26)
[2019-04-19] MEDS: GABAPENTIN 100 MG CAP PO SCH ×3 (10:30→21:36)
--- NOTE | 2019-04-19 12:11 | Consultation ---
History of Present Illness - Reason for Consult Consult date: 04/19/19 acute renal failure, hyperkalemia - History of Present Illness the patient is a 78 YO male with known history of DM type 2, Hypertension, HLD, peripheral neuropathy, CAD s/p CABG in the past and L BKA who presented to [facility] emergency room on 04/16 complaining of diarrhea of few days duration. Pt had several episodes of non-bloody loose stools. He denies any melena, N, V, abdominal pain, fever, chills, rash, dizziness, syncope, leg swelling, cp, recent use of antibiotics or recent travel. He was found to have hypotension, DELORIS and hyperkalemia. His symptoms have improved now. Nephrology was consulted for further evaluation. Past History Past Medical History: CAD, diabetes, hypertension, hyperlipidemia Past Surgical History: CABG, Other (Perforated ulcer with partial gastrectomy. RIGHT KNEE SURGERY. TONSILLECTOMY) Social history: no significant social history Family history: diabetes (Grandfather had diabetes) Medications and Allergies Allergies Allergy/AdvReac Type Severity Reaction Status Date / Time Penicillins Allergy Severe HIVES, Verified 11/22/16 10:57 ITCHING Home Medications Medication Instructions Recorded Confirmed Last Taken Type Aspirin EC [Halfprin EC] 81 mg PO DAILY 09/02/13 04/16/19 01/25/15 History Gabapentin 400 mg PO TID 09/02/13 04/16/19 01/31/15 History Lactobacillus Acidophilus 1 each PO DAILY 09/02/13 04/16/19 01/31/15 History [Probiotic] Lisinopril 10 mg PO DAILY 09/02/13 04/16/19 01/31/15 History Metformin HCl [Metformin] 500 mg PO QPM 09/02/13 04/16/19 01/31/15 History Multivitamin [Multi-Vitamin Daily] 1 each PO DAILY 09/02/13 04/16/19 01/31/15 History Furosemide [Lasix] 20 mg PO QDAY 01/25/15 04/16/19 01/31/15 History Acetaminophen/Codeine [Tylenol 1 tab PO Q8H PRN #20 tab 11/22/16 04/16/19 Unknown Rx /Codeine # 3 tab] Apixaban [Eliquis] 5 mg PO BID 04/16/19 04/16/19 Unknown History Januvia 100 mg PO DAILY 04/16/19 04/16/19 Unknown History Lovastatin [Altoprev] 20 mg PO QPM 04/16/19 04/16/19 Unknown History Metoprolol 25 mg PO DAILY 04/16/19 04/16/19 Unknown History amLODIPine [Norvasc] 5 mg PO DAILY 04/16/19 04/16/19 Unknown History glipiZIDE 5 mg PO DAILY 04/16/19 04/16/19 Unknown History Active Meds: Active Medications Acetaminophen (Tylenol) 650 mg PO Q6H PRN PRN Reason: Pain MILD(1-3)/Fever >100.5/RIOS Acetaminophen/Codeine Phosphate (Tylenol #3) 1 tab PO Q8H PRN PRN Reason: Pain, Moderate (4-6) Last Admin: 04/18/19 21:22 Dose: 1 tab Documented by: Amlodipine Besylate (Amlodipine) 5 mg PO DAILY [facility] Last Admin: 04/19/19 10:26 Dose: 5 mg Documented by: Apixaban (Eliquis) 5 mg PO BID [facility]; Protocol Last Admin: 04/19/19 10:26 Dose: 5 mg Documented by: Aspirin (Halfprin Ec) 81 mg PO DAILY [facility] Last Admin: 04/19/19 10:26 Dose: 81 mg Documented by: Dextrose (D50w (25gm) Syringe) 0 ml IV Q30MIN PRN; Protocol PRN Reason: Hypoglycemia Gabapentin (Gabapentin) 100 mg PO TID [facility] Last Admin: 04/19/19 10:30 Dose: 100 mg Documented by: Sodium Chloride (Nacl 0.9% 1000 Ml) 1,000 mls @ 50 mls/hr IV DIRECT GISSELL Last Admin: 04/19/19 06:39 Dose: 100 mls/hr Documented by: Insulin Human Regular (Humulin R) 0 units SUB-Q ACHS GISSELL; Protocol Last Admin: 04/18/19 22:58 Dose: Not Given Documented by: Lactobacillus Acidophilus (Lactinex) 1 each PO QDAY [facility] Last Admin: 04/19/19 10:26 Dose: 1 each Documented by: Levofloxacin (Levaquin) 250 mg PO Q24HR [facility] Last Admin: 04/19/19 10:26 Dose: 250 mg Documented by: Linagliptin (Tradjenta) 5 mg PO QDAY [facility] Last Admin: 04/19/19 10:26 Dose: 5 mg Documented by: Magnesium Hydroxide (Milk Of Magnesia) 30 ml PO Q4H PRN PRN Reason: Constipation Metronidazole (Flagyl) 500 mg PO Q8HR [facility]; Protocol Last Admin: 04/19/19 06:38 Dose: 500 mg Documented by: Multivitamins (Theragran Tab) 1 each PO DAILY [facility] Last Admin: 04/19/19 10:26 Dose: 1 each Documented by: Ondansetron HCl (Zofran) 4 mg IV Q8H PRN PRN Reason: Nausea And Vomiting Pravastatin Sodium (Pravachol) 20 mg PO QHS [facility] Last Admin: 04/18/19 21:22 Dose: 20 mg Documented by: Sodium Chloride (Sodium Chloride Flush Syringe 10 Ml) 10 ml IV BID [facility] Last Admin: 04/18/19 21:23 Dose: 10 ml Documented by: Sodium Chloride (Sodium Chloride Flush Syringe 10 Ml) 10 ml IV PRN PRN PRN Reason: LINE FLUSH Review of Systems Constitutional: no weight loss, no weight gain, no fever, no chills, no anorexia, no weakness, no poor appetite Cardiovascular: high blood pressure, no chest pain, no orthopnea, no edema, no lightheadedness, no shortness of breath, no leg edema Respiratory: no cough, no cough with sputum, no hemoptysis, no shortness of breath, no dyspnea on exertion Gastrointestinal: diarrhea, no abdominal pain, no nausea, no vomiting, no BRBPR, no melena, no hematochezia Genitourinary Male: no dysuria, no hematuria Rectal: no bleeding Musculoskeletal: no morning stiffness, no muscle weakness, no muscle cramps Integumentary: no rash, no redness, no sores, no wounds Neurological: no seizures, no syncope, no convulsions, no aphasia, no change in speech, no change in mentation, no confusion, no memory loss Exam - Vital Signs Vital signs: Vital Signs Temp Pulse Resp Pulse Ox 97.3 F L 75 18 100 04/16/19 14:56 04/16/19 14:56 04/16/19 14:56 04/16/19 14:56 - General Appearance General appearance: well-developed, well-nourished, appears stated age, other (not in distress) EENT: ATNC, PERRL, mucous membranes moist, hearing intact, vision intact Neck: Present: neck supple, trachea midline Respiratory: Clear to Ascultation Heart: S1S2, no murmurs Gastrointestinal: Present: normoactive bowel sounds. Absent: tenderness, distended Integumentary: no rash, warm and dry Neurologic: no focal deficit, no asterixis, alert and oriented x3 Musculoskeletal: Present: other (L BKA) Psychiatric: cooperative Results - Lab Results 04/17/19 04:38 04/19/19 00:48 Most recent lab results Calcium 8.3 mg/dL (8.4-10.2) L 04/19/19 00:48 - Image Kidney/bladder ultrasound: pending Assessment and Plan 1. Acute kidney injury: Vasomotor DELORIS in the setting of volume depletion and hypotension. Urine studies and Renal US ordered. Continue IV fluids. Monitor renal function. Avoid nephrotoxic agents. Meds dosage based on GFR. 2. FEN: Hyperkalemia, improved. Metabolic acidosis, monitor. Monitor lytes. 3. Hypotension: BP is better. 4. Diarrhea. 5. CAD (coronary artery disease): Continue his home medications. 6. Chronic atrial fib: Rate controlled, on Eliquis. 7. DM-2. 8. Hypertension: Monitor BP.
[2019-04-19] MEDS: INSULIN REGULAR, HUMAN 100 UNITS/1 ML SUB-Q SCH ×4 (13:28→23:14)
--- NOTE | 2019-04-19 15:48 | Progress Note ---
Assessment and Plan / Hypotension with diarrhea Patient placed on IV fluid, will monitor vital signs closely. monitor BMP, cont to hold BP med cont abx, ordered stool study - will follow / Hyperkalemia, resolved Patient has had calcium gluconate and Kayexalate in the emergency room. monitor potassium level and also monitor EKG. / CAD (coronary artery disease) continue patient on his routine home medications. He denies any chest pain. / Diabetes mellitus type 2 monitor with Accu-Cheks closely and continue routine home medications. / Hyperlipemia Continue routine home medications. / Acute on ? chronic renal insufficiency Possibly secondary to the diarrhea - vasomotor nephropathy. cont iv fluid if no improve - consult nephrology patient states during his last f/u with enrollment specialist he was told his cr is 1.3 /Chronic atrial fib - rate controlled, on eliquis / DVT prophylaxis Patient placed on eliquis /Full code status Disposition: home when renal function stabilizes Subjective Date of service: 04/19/19 Interval history: Patient seen and examined resolved diarrhea tolerating diet, denies chest pain family at bedside Objective - Exam Narrative Exam: General appearance: Present: no acute distress, well-nourished - EENT Eyes: PERRL, EOM intact ENT: hearing intact, clear oral mucosa Ears: bilateral: normal - Neck Neck: supple, normal ROM - Respiratory Respiratory effort: normal Respiratory: bilateral: CTA - Cardiovascular Rhythm: regular Heart Sounds: Present: S1 & S2. Absent: gallop, rub Extremities: pulses intact, No edema, normal color, Full ROM Extremity abnormal: other (left BKA) - Gastrointestinal General gastrointestinal: Present: soft, non-tender, non-distended, normal bowel sounds - Integumentary Integumentary: clear, warm, dry - Musculoskeletal Musculoskeletal: 1, strength equal bilaterally - Neurologic Neurologic: moves all extremities - Psychiatric Psychiatric: memory intact, appropriate mood/affect, intact judgment & insight - Constitutional Vitals: Vital Signs - 12hr 04/19/19 04/19/19 08:03 08:17 Temperature 97.6 F Pulse Rate 60 Respiratory 18 Rate Blood Pressure 175/80 - Labs CBC & Chem 7: 04/17/19 04:38 04/19/19 00:48 Labs: Abnormal lab results 04/18/19 04/18/19 04/19/19 Range/Units 16:15 20:55 00:48 Chloride 110.5 H (98-107) mmol/L Carbon Dioxide 17 L (22-30) mmol/L BUN 46 H (9-20) mg/dL Creatinine 1.7 H (0.8-1.5) mg/dL Glucose 151 H (75-100) mg/dL POC Glucose 157 H 154 H (70-105) Calcium 8.3 L (8.4-10.2) mg/dL 04/19/19 Range/Units 12:30 Chloride (98-107) mmol/L Carbon Dioxide (22-30) mmol/L BUN (9-20) mg/dL Creatinine (0.8-1.5) mg/dL Glucose (75-100) mg/dL POC Glucose 210 H (70-105) Calcium (8.4-10.2) mg/dL
[2019-04-19 18:02] LABS: Bilirubin,Urine NEG (Negative); Blood,Urine NEG (Negative); Color,Urine Yellow (Yellow); RBC,Urine < 1.0 /HPF (0.0-6.0); Urobilinogen,Urine < 2.0 mg/dL (<2.0)
[2019-04-19 18:07] LABS: Creatinine,Urine 35.3 mg/dL (0.1-20.0)
[2019-04-19] MEDS ORDERED: hydrALAZINE 20 MG/1 ML INJ IV PRN (21:06)
[2019-04-19] MEDS: PRAVASTATIN 20 MG TAB PO SCH (21:36)
[2019-04-19] MEDS ORDERED: SODIUM CHLORIDE 0.45% 1000 ML 1,000 ML IV SCH (22:00)
--- NOTE | 2019-04-20 01:38 | Ultrasound Report ---
Renal ultrasound. 04/20/2019. HISTORY: Acute renal failure. FINDINGS: Right kidney measures 11.3 cm. Cortex measures 1.3 cm. Left kidney measures 12.5 cm. Cortex measures 2 cm. An indeterminate hypoechoic lesion is seen at the upper pole of the left kidney measuring 1.8 cm. Cortical echogenicity is normal. Negative for obstruction. The bladder contains moderate urine. IMPRESSION: 1. Negative for obstruction. 2. Indeterminate hypoechoic area upper pole left kidney. This could be better evaluated with multipha se CT when renal function returns to normal. Signer Name: Joce Dorman MD Signed: 04/20/2019 1:34 AM Workstation Name: [id number]
[2019-04-20] MEDS: metroNIDAZOLE 500 MG TAB PO SCH ×2 (06:04→13:05)
[2019-04-20 07:52] LABS: BUN/Creatinine Ratio 23; Blood Urea Nitrogen 25 mg/dL (9-20); Calcium 8.6 mg/dL (8.4-10.2); Hemolysis Index 86
[2019-04-20] MEDS: INSULIN REGULAR, HUMAN 100 UNITS/1 ML SUB-Q SCH ×2 (08:00→12:00)
[2019-04-20] MEDS: GABAPENTIN 100 MG CAP PO SCH ×2 (09:00→13:05)
--- NOTE | 2019-04-20 09:01 | Progress Note ---
Assessment and Plan 1. Acute kidney injury: Vasomotor DELORIS in the setting of volume depletion and hypotension. Renal US negative for hydronephrosis. Renal function has improved. Monitor renal function. Avoid nephrotoxic agents. Meds dosage based on GFR. Pt needs further evaluation of the L kidney hypoechoic area. 2. FEN: Hyperkalemia, improved. Metabolic acidosis, monitor. Monitor lytes. 3. Hypotension: Improved. 4. Diarrhea: Improved. 5. CAD (coronary artery disease): Continue his home medications. 6. Chronic atrial fib: Rate controlled, on Eliquis. 7. DM-2. 8. Hypertension: Monitor BP. F/u with me in 1-2 weeks. Subjective Date of service: 04/20/19 Interval history: Patient was seen and examined at the bedside. Doing better. Objective - Vital Signs Vital signs: Vital Signs - 12hr 04/19/19 04/19/19 04/19/19 21:37 22:35 23:39 Temperature 98.4 F Pulse Rate 84 84 Pulse Rate [ 84 Apical] Pulse Rate [ 84 From Monitor] Respiratory 18 18 Rate Blood Pressure 183/87 165/81 O2 Sat by Pulse 96 95 Oximetry 04/20/19 04/20/19 04/20/19 04:08 04:09 08:43 Temperature 98.3 F 98.3 F Pulse Rate 85 86 Pulse Rate [ Apical] Pulse Rate [ From Monitor] Respiratory 20 18 Rate Blood Pressure 144/70 158/82 O2 Sat by Pulse 95 94 Oximetry - Lab 04/17/19 04:38 04/20/19 07:02 Most recent lab results Calcium 8.6 mg/dL (8.4-10.2) 04/20/19 07:02 Phosphorus 2.70 mg/dL (2.5-4.5) 04/20/19 07:02 Magnesium 1.50 mg/dL (1.7-2.3) L 04/20/19 07:02 Urine Creatinine 35.3 mg/dL (0.1-20.0) H 04/19/19 12:12 Urine Sodium 107 mmol/L 04/19/19 12:12 Medications & Allergies - Medications Allergies/Adverse Reactions: Allergies Penicillins Allergy (Severe, Verified 11/22/16 10:57) HIVES, ITCHING hydralazine Allergy (Verified 04/20/19 05:19) Rash Home Medications: Home Medications Medication Instructions Recorded Confirmed Last Taken Type Aspirin EC [Halfprin EC] 81 mg PO DAILY 09/02/13 04/16/19 01/25/15 History Gabapentin 400 mg PO TID 09/02/13 04/16/19 01/31/15 History Lactobacillus Acidophilus 1 each PO DAILY 09/02/13 04/16/19 01/31/15 History [Probiotic] Lisinopril 10 mg PO DAILY 09/02/13 04/16/19 01/31/15 History Metformin HCl [Metformin] 500 mg PO QPM 09/02/13 04/16/19 01/31/15 History Multivitamin [Multi-Vitamin Daily] 1 each PO DAILY 09/02/13 04/16/19 01/31/15 H istory Acetaminophen/Codeine [Tylenol 1 tab PO Q8H PRN #20 tab 11/22/16 04/16/19 Unknown Rx /Codeine # 3 tab] Apixaban [Eliquis] 5 mg PO BID 04/16/19 04/16/19 Unknown History Januvia 100 mg PO DAILY 04/16/19 04/16/19 Unknown History Lovastatin [Altoprev] 20 mg PO QPM 04/16/19 04/16/19 Unknown History Metoprolol 25 mg PO DAILY 04/16/19 04/16/19 Unknown History amLODIPine 5 mg PO DAILY 04/16/19 04/16/19 Unknown History glipiZIDE 5 mg PO DAILY 04/16/19 04/16/19 Unknown History Active Medications: Generic Name Dose Route Start Last Admin Trade Name Freq PRN Reason Stop Dose Admin Acetaminophen 650 mg 04/16/19 22:57 Tylenol PO Q6H PRN Pain MILD(1-3)/Fever >100.5/RIOS Acetaminophen/Codeine Phosphate 1 tab 04/17/19 08:34 04/18/19 21:22 Tylenol #3 PO 1 tab Q8H PRN Administration Pain, Moderate (4-6) Amlodipine Besylate 5 mg 04/19/19 10:00 04/19/19 10:26 Amlodipine PO 5 mg DAILY GISSELL Administration Apixaban 5 mg 04/17/19 10:00 04/19/19 21:37 Eliquis PO 5 mg BID GISSELL Administration Protocol Aspirin 81 mg 04/17/19 10:00 04/19/19 10:26 Halfprin Ec PO 81 mg DAILY GISSELL Administration Dextrose 0 ml 04/16/19 22:57 D50w (25gm) Syringe IV Q30MIN PRN Hypoglycemia Protocol Gabapentin 100 mg 04/18/19 14:00 04/19/19 21:36 Gabapentin PO 100 mg TID GISSELL Administration Sodium Chloride 1,000 mls @ 50 mls/hr 04/19/19 22:00 04/20/19 06:06 Nacl 0.45% 1000 Ml IV 04/20/19 11:00 50 mls/hr DIRECT GISSELL Administration Insulin Human Regular 0 units 04/17/19 07:30 04/19/19 23:14 Humulin R SUB-Q Not Given ACHS GISSELL Protocol Lactobacillus Acidophilus 1 each 04/17/19 10:00 04/19/19 10:26 Lactinex PO 1 each QDAY GISSELL Administration Levofloxacin 250 mg 04/17/19 15:00 04/19/19 10:26 Levaquin PO 250 mg Q24HR GISSELL Administration Linagliptin 5 mg 04/17/19 10:00 04/19/19 10:26 Tradjenta PO 5 mg QDAY GISSELL Administration Magnesium Hydroxide 30 ml 04/16/19 22:57 Milk Of Magnesia PO Q4H PRN Constipation Metronidazole 500 mg 04/17/19 15:00 04/20/19 06:04 Flagyl PO 500 mg Q8HR GISSELL Administration Protocol Multivitamins 1 each 04/17/19 10:00 04/19/19 10:26 Theragran Tab PO 1 each DAILY GISSELL Administration Ondansetron HCl 4 mg 04/16/19 22:57 Zofran IV Q8H PRN Nausea And Vomiting Pravastatin Sodium 20 mg 04/17/19 22:00 04/19/19 21:36 Pravachol PO 20 mg QHS GISSELL Administration Sodium Chloride 10 ml 04/17/19 10:00 04/19/19 21:38 Sodium Chloride Flush Syringe 10 Ml IV 10 ml BID GISSELL Administration Sodium Chloride 10 ml 04/16/19 22:57 Sodium Chloride Flush Syringe 10 Ml IV PRN PRN LINE FLUSH
[2019-04-20] MEDS: ASPIRIN EC 81 MG TAB PO SCH (09:49)
[2019-04-20] MEDS: MULTIVITAMINS ,THERAPEUTIC TAB PO SCH (09:49)
[2019-04-20] MEDS: LACTINEX CHEW TAB PO SCH (09:49)
[2019-04-20] MEDS: levoFLOXacin 250 MG TAB PO SCH (09:49)
[2019-04-20] MEDS: APIXABAN 5 MG TAB PO SCH (09:49)
[2019-04-20] MEDS: amLODIPine 5 MG TAB PO SCH (09:50)
[2019-04-20] MEDS: LINAGLIPTIN 5 MG TAB PO SCH (09:50)
[2019-04-20 09:51] VITALS: BP 155/72
--- NOTE | 2019-04-20 12:28 | Discharge Summary ---
Providers - Providers Date of Admission: 04/16/19 21:18 Date of discharge: 04/20/19 Attending physician: MASOUD GANDHI 04/16/19 22:57 Consult to Dietitian/Nutrition [CONS] Routine Physician Instructions: Reason For Exam: Reason for Consult: Diet education 04/18/19 11:32 Consult to Physician [CONS] Routine Comment: Consulting Provider: LORNA CHE Physician Instructions: Reason For Exam: DELORIS 04/18/19 12:38 Physical Therapy Evaluation and Treat [CONS] Routine Comment: Reason For Exam: placement Primary care physician: VASCULAR SURGERY PHYSICIAN Hospitalization Condition: Fair Hospital course: Patient is a 78-year-old male with diabetes mellitus, peripheral neuropathy, coronary artery disease s/p CABG, hyperlipidemia. He presented to the emergency room witjh nausea, vomiting and diarrhea for few days. He denies any bright red blood per rectum, denies any abdominal pain. Denies any fever or chills. No recent use of antibiotics and no recent travel. He was seen and evaluated in Emergency Department s significant for dehydration, he was slightly hypotensive, and was found to be hyperkalemic on the lab tests. Patient was placed on IV fluid, given calcium gluconate and admitted. he was seen by [employer]. Creatinine normalized in few days and he was discharged home. Acute kidney injury due to vasomotor nephropathy iv fluids, Nephrology Hypotension with diarrhea Patient placed on IV fluid Hyperkalemia, resolved Patient treated with calcium gluconate and Kayexalate in the emergency room. CAD (coronary artery disease) continued patient on his routine home medications. He denied any chest pain. Diabetes mellitus type 2 monitor with Accu-Cheks closely and continue routine home medications. Hyperlipemia Continued routine home medications. Chronic atrial fib - rate controlled, on eliquis Total time spent on discharge, 33 mins Disposition: - TO HOME OR SELFCARE - Discharge Diagnoses (1) DELORIS (acute kidney injury) Status: Acute (2) Vasomotor nephropathy Status: Acute (3) Diarrhea Status: Acute Qualifiers: Diarrhea type: unspecified type Qualified Code(s): R19.7 - Diarrhea, unspecified (4) Hypotension Status: Acute Qualifiers: Hypotension type: unspecified hypotension type Qualified Code(s): I95.9 - Hypotension, unspecified (5) Nausea & vomiting Status: Acute (6) CAD (coronary artery disease) Status: Chronic Comment: send for bypass surgery (7) Diabetes mellitus Status: Chronic Qualifiers: Diabetes mellitus type: type 2 (8) History of PTCA Status: Chronic (9) Hyperlipemia Status: Chronic (10) Hypertension Status: Chronic (11) Hyperkalemia Status: Acute Core Measure Documentation - Palliative Care Palliative Care/ Comfort Measures: Not Applicable - Core Measures Any of the following diagnoses?: none Exam - Constitutional Vitals: Temp Pulse Resp BP Pulse Ox 98.3 F 88 17 155/72 98 04/20/19 08:43 04/20/19 10:28 04/20/19 10:28 04/20/19 09:50 04/20/19 10:28 Plan Activity: advance as tolerated Diet: low fat, low cholesterol, low salt, renal Plan of Treatment: 1.Follow up with PCP in 1 week. 2.Follow up with Dr. Che, Nephrology in 1 week Follow up with: PRIMARY CAREMD [Referring] - 3-5 Days
== END 2019-04-20 14:55 | disposition home or self-care (01) | DRG 640 ==
LOC: ED 14:33 → IMCU 21:18 → 4A 04-17 15:21
PROVIDERS: ADMIT Internal Medicine Geriatric Medicine; ATTEND Internal Medicine
DX: E87.5 Hyperkalemia (principal); N17.0 Acute kidney failure with tubular necrosis; I13.0 Hypertensive heart and chronic kidney disease with heart failure and stage 1 through stage 4 chronic kidney disease, or unspecified chronic kidney disease; I48.20 Chronic atrial fibrillation, unspecified; E87.2 Acidosis; I50.9 Heart failure, unspecified; E11.22 Type 2 diabetes mellitus with diabetic chronic kidney disease; R19.7 Diarrhea, unspecified; N18.9 Chronic kidney disease, unspecified; E86.0 Dehydration; E11.42 Type 2 diabetes mellitus with diabetic polyneuropathy; I25.10 Atherosclerotic heart disease of native coronary artery without angina pectoris; Z79.82 Long term (current) use of aspirin; Z79.899 Other long term (current) drug therapy; Z79.84 Long term (current) use of oral hypoglycemic drugs; Z79.01 Long term (current) use of anticoagulants; Z88.0 Allergy status to penicillin; Z95.5 Presence of coronary angioplasty implant and graft; Z89.512 Acquired absence of left leg below knee; Z90.49 Acquired absence of other specified parts of digestive tract; Z90.89 Acquired absence of other organs; Z83.3 Family history of diabetes mellitus; Z95.1 Presence of aortocoronary bypass graft; I95.9 Hypotension, unspecified
CPT/HCPCS: 36415; 76770; 80048; 80053; 81001; 82570; 82962; 83735; 84100; 84132; 84300; 85007; 85025; 85610; 85730; 87045; 93005; 93010; G0378; A9270-GY; J0360; J1815; J7030

== ENCOUNTER 2019-09-13 13:34 | Emergency (ER) | payer MEDICARE ==
--- NOTE | 2019-09-13 13:59 | Event Note ---
ED Screening Note Date of service: 09/13/19 Time: 13:58 ED Screening Note: 79-year-old male with multiple comorbidities comes in for shortness of breath and gurgling with blood tinge mucus 3 pitted edema. This initial assessment/diagnostic orders/clinical plan/treatment(s) is/are subject to change based on patients health status, clinical progression and re- assessment by fellow clinical providers in the ED. Further treatment and workup at subsequent clinical providers discretion. Patient/guardian urged not to elope from the ED as their condition may be serious if not clinically assessed and managed. Initial orders include:
[2019-09-13 15:01] LABS: Basophils # (Auto) 0.1 K/mm3 (0.0-0.1); Basophils % (Auto) 0.9 % (0.0-1.8); Eosinophils # (Auto) 0.2 K/mm3 (0.0-0.4); Eosinophils % (Auto) 2.5 % (0.0-4.3); Hematocrit 40.8 % (35.5-45.6); Hemoglobin 13.6 gm/dl (11.8-15.2); Lymphocytes # (Auto) 1.8 K/mm3 (1.2-5.4); Lymphocytes % (Auto) 24.9 % (13.4-35.0); Mean Corpuscular HGB Conc 34 % (32-34); Mean Corpuscular Volume 92 fl (84-94); Monocytes # (Auto) 0.4 K/mm3 (0.0-0.8); Monocytes % (Auto) 5.2 % (0.0-7.3); Platelet Count 241 K/mm3 (140-440); Red Blood Count 4.42 M/mm3 (3.65-5.03); Red Cell Distribution Width 15.5 % (13.2-15.2)
--- NOTE | 2019-09-13 15:03 | XRay Report ---
CHEST 2 VIEWS INDICATION: sob. COMPARISON: 07/17/2019 FINDINGS: Support devices: None. Heart: Stable mild cardiomegaly and CABG changes. Lungs/pleura: Mild pulmonary venous congestion and trace to small bilateral pleural effusions are trisha ntified. No convincing infiltrate or pneumothorax. Additional findings: Moderate hiatal hernia is suspected posterior to the heart. IMPRESSION: Mild CHF. Probable hiatal hernia. No overwhelming change since 07/17/2019. Signer Name: Everton Gonzalez Jr, MD Signed: 09/13/2019 2:58 PM Workstation Name: [id number]
--- NOTE | 2019-09-13 15:04 | Emergency Department Report ---
ED Shortness of Breath HPI - General Chief Complaint: Upper Respiratory Infection Stated Complaint: COUGH/VOMIT BLOOD Time Seen by Provider: 09/13/19 14:52 Source: patient Mode of arrival: Ambulatory Limitations: No Limitations - History of Present Illness Initial Comments: CC: " I really do not feel like I am sick." This is a 79-year-old male with history of diabetes mellitus, hypertension, CAD status post CABG, peptic ulcer disease, GI bleed, left BKA, pulmonary embolism, dyslipidemia who presents with shortness of breath, productive cough. For the past 1 to 2 weeks, patient has had productive cough mucus streaked with blood. He feels a little short of breath and congested when he lays flat. He feels much better when he sits sits up. His daughter thought it would be best to be evaluated in the emergency department. July 2019 cardiac catheterization revealed severely dilated left ventricle with EF 10 to 20%, patent grafts During recent hospitalization, patient was given LifeVest. MD Complaint: shortness of breath, cough -: Gradual, week(s) (1-2) Severity: mild Consistency: constant Improves With: upright position Worsens With: lying flat Known History Of: congestive heart failure Associated Symptoms: denies other symptoms - Related Data Home Medications Medication Instructions Recorded Confirmed Last Taken Gabapentin 400 mg PO TID 09/02/13 07/16/19 01/31/15 Metformin HCl [Metformin] 1,000 mg PO DAILY 09/02/13 07/16/19 01/31/15 Lovastatin [Altoprev] 20 mg PO QPM 04/16/19 07/16/19 Unknown Glucos Sul 2Kcl/MSM/Chond/C/Mn 1 each PO DAILY 07/16/19 07/16/19 Unknown [Glucosamine Chondroitin Cap] Previous Rx's Medication Instructions Recorded Last Taken Type Apixaban [Eliquis] 5 mg PO BID #60 07/22/19 Unknown Rx Apixaban [Eliquis] 5 mg PO Q12HR tablet 07/22/19 Unknown Rx Aspirin EC [Halfprin EC] 81 mg PO DAILY #30 07/22/19 Unknown Rx Furosemide [Lasix TAB] 40 mg PO DAILY@0600 #30 tablet 07/22/19 Unknown Rx Metoprolol Tartrate [Lopressor] 50 mg PO BID #60 07/22/19 Unknown Rx Potassium Chloride [K-Dur] 40 meq PO Q12H #60 tablet 07/22/19 Unknown Rx amLODIPine 5 mg PO DAILY #30 07/22/19 Unknown Rx glipiZIDE 5 mg PO BID #60 07/22/19 Unknown Rx lisinopriL [Zestril TAB] 20 mg PO BID #60 tablet 07/22/19 Unknown Rx metFORMIN [Glucophage] 500 mg PO HS #30 07/22/19 Unknown Rx DOXYCYCLINE Hyclate [Vibramycin 100 mg PO Q12HR 7 Days #14 capsule 09/13/19 Unknown Rx CAP] Allergies Allergy/AdvReac Type Severity Reaction Status Date / Time Penicillins Allergy Severe HIVES, Verified 11/22/16 10:57 ITCHING hydralazine Allergy Rash Verified 04/20/19 05:19 ED Review of Systems ROS: Stated complaint: COUGH/VOMIT BLOOD Other details as noted in HPI Comment: All other systems reviewed and negative Constitutional: denies: fever, malaise Respiratory: cough, shortness of breath. denies: wheezing Cardiovascular: denies: chest pain Gastrointestinal: denies: abdominal pain, nausea, vomiting ED Past Medical Hx - Past Medical History Previous Medical History?: Yes Hx Hypertension: Yes Hx Heart Attack/AMI: No Hx Congestive Heart Failure: Yes Hx Diabetes: Yes Hx Deep Vein Thrombosis: No Hx Sickle Cell Disease: No Hx Arthritis: Yes Hx HIV: No Additional medical history: CAD. BLEEDING ULCERS - Surgical History Hx Coronary Stent: Yes (2004) Hx Open Heart Surgery: Yes ([facility]) Hx Pacemaker: No Hx Internal Defibrillator: No Additional Surgical History: left BKA. Perforated ulcer with partial gastrectomy. RIGHT KNEE SURGERY. TONSILLECTOMY - Social History Smoking Status: Never Smoker Substance Use Type: None - Medications Home Medications: Home Medications Medication Instructions Recorded Confirmed Last Taken Type Gabapentin 400 mg PO TID 09/02/13 07/16/19 01/31/15 History Metformin HCl [Metformin] 1,000 mg PO DAILY 09/02/13 07/16/19 01/31/15 History Lovastatin [Altoprev] 20 mg PO QPM 04/16/19 07/16/19 Unknown History Glucos Sul 2Kcl/MSM/Chond/C/Mn 1 each PO DAILY 07/16/19 07/16/19 Unknown History [Glucosamine Chondroitin Cap] Apixaban [Eliquis] 5 mg PO BID #60 07/22/19 Unknown Rx Apixaban [Eliquis] 5 mg PO Q12HR tablet 07/22/19 Unknown Rx Aspirin EC [Halfprin EC] 81 mg PO DAILY #30 07/22/19 Unknown Rx Furosemide [Lasix TAB] 40 mg PO DAILY@0600 #30 tablet 07/22/19 Unknown Rx Metoprolol Tartrate [Lopressor] 50 mg PO BID #60 07/22/19 Unknown Rx Potassium Chloride [K-Dur] 40 meq PO Q12H #60 tablet 07/22/19 Unknown Rx amLODIPine 5 mg PO DAILY #30 07/22/19 Unknown Rx glipiZIDE 5 mg PO BID #60 07/22/19 Unknown Rx lisinopriL [Zestril TAB] 20 mg PO BID #60 tablet 07/22/19 Unknown Rx metFORMIN [Glucophage] 500 mg PO HS #30 07/22/19 Unknown Rx DOXYCYCLINE Hyclate [Vibramycin 100 mg PO Q12HR 7 Days #14 capsule 09/13/19 Unknown Rx CAP] ED Physical Exam - General Limitations: No Limitations General appearance: alert, in no apparent distress, other (Speaking full word sentences no work of breathing) - Head Head exam: Present: atraumatic, normocephalic - Eye Eye exam: Present: normal appearance - ENT ENT exam: Present: mucous membranes moist - Neck Neck exam: Present: normal inspection, full ROM. Absent: tenderness, meningismus - Respiratory Respiratory exam: Present: normal lung sounds bilaterally. Absent: respiratory distress, wheezes, rales, rhonchi - Cardiovascular Cardiovascular Exam: Present: regular rate, normal rhythm, normal heart sounds. Absent: systolic murmur, diastolic murmur, rubs, gallop - GI/Abdominal GI/Abdominal exam: Present: soft, normal bowel sounds. Absent: distended, tenderness, guarding, rebound - Rectal Rectal exam: Present: deferred - Extremities Exam Extremities exam: Present: other (Left prosthetic in place history of BKA, right lower extremity: Mild edema venous stasis changes) - Neurological Exam Neurological exam: Present: alert, oriented X3 - Psychiatric Psychiatric exam: Present: normal affect, normal mood - Skin Skin exam: Present: warm, dry, intact, normal color. Absent: rash ED Course Vital Signs 09/13/19 13:44 Temperature 97.7 F Pulse Rate 66 Respiratory 20 Rate Blood Pressure 148/76 O2 Sat by Pulse 96 Oximetry ED Medical Decision Making - Lab Data Result diagrams: 09/13/19 14:36 09/13/19 14:36 Laboratory Results - last 24 hr 09/13/19 09/13/19 09/13/19 14:36 14:36 14:36 WBC 7.3 RBC 4.42 Hgb 13.6 Hct 40.8 MCV 92 MCH 31 MCHC 34 RDW 15.5 H Plt Count 241 Lymph % (Auto) 24.9 [place] % (Auto) 5.2 Eos % (Auto) 2.5 Baso % (Auto) 0.9 Lymph # 1.8 [place] # 0.4 Eos # 0.2 Baso # 0.1 Seg Neutrophils % 66.5 Seg Neutrophils # 4.9 PT INR APTT VBG pH 7.361 Sodium 138 Potassium 4.3 Chloride 101.1 Carbon Dioxide 21 L Anion Gap 20 BUN 29 H Creatinine 1.2 Estimated GFR 58 BUN/Creatinine Ratio 24 Glucose 117 H Calcium 9.5 Total Bilirubin 0.40 AST 97 H ALT 98 H Alkaline Phosphatase 536 H NT-Pro-B Natriuret Pep 34909 H Total Protein 7.6 Albumin 3.8 L Albumin/Globulin Ratio 1.0 Blood Type 09/13/19 09/13/19 14:36 14:36 WBC RBC Hgb Hct MCV MCH MCHC RDW Plt Count Lymph % (Auto) [place] % (Auto) Eos % (Auto) Baso % (Auto) Lymph # [place] # Eos # Baso # Seg Neutrophils % Seg Neutrophils # PT 15.5 H INR 1.21 H APTT 29.2 VBG pH Sodium Potassium Chloride Carbon Dioxide Anion Gap BUN Creatinine Estimated GFR BUN/Creatinine Ratio Glucose Calcium Total Bilirubin AST ALT Alkaline Phosphatase NT-Pro-B Natriuret Pep Total Protein Albumin Albumin/Globulin Ratio Blood Type O POSITIVE - Radiology Data Radiology results: report reviewed AP portable chest: Mild CHF unchanged from prior study according to radiology report - Medical Decision Making This is a 79 yo male with hx of several medical conditions including CHF, PE who presents with hemoptysis, mild and orthopnea. He feels at his baseline. BNP decreased from 36,000 to 10,000. Will treat for acute bronchitis. New findings elevated AST ALT compared to previous exams. No anemia. I have informed patient that his liver lab values are elevated. This could be due to medication. He will need outpatient hepatitis work-up. Critical care attestation.: If time is entered above; I have spent that time in minutes in the direct care of this critically ill patient, excluding procedure time. ED Disposition Clinical Impression: Acute bronchitis, Hemoptysis, CHF (congestive heart failure), Abnormal liver enzymes Disposition: TO HOME OR SELFCARE Is pt being admited?: No Does the pt Need Aspirin: No Condition: Stable Instructions: Acute Bronchitis (ED) Additional Instructions: Your liver lab values are slightly elevated. This can be due to new medication. Please have your physician recheck your liver lab values within the next month. Prescriptions: DOXYCYCLINE Hyclate [Vibramycin CAP] 100 mg PO Q12HR 7 Days #14 capsule
[2019-09-13 15:12] LABS: INR 1.21 (0.87-1.13)
[2019-09-13 15:13] LABS: Partial Thromboplastin Time 29.2 Sec. (24.2-36.6)
[2019-09-13 15:26] LABS: Albumin 3.8 g/dL (3.9-5); Calcium 9.5 mg/dL (8.4-10.2)
[2019-09-13 15:48] VITALS: BP 134/62
== END 2019-09-13 16:28 | disposition home or self-care (01) ==
LOC: ED 13:34
DX: I11.0 Hypertensive heart disease with heart failure (principal); I50.9 Heart failure, unspecified; E11.9 Type 2 diabetes mellitus without complications; M13.88 Other specified arthritis, other site; Z95.818 Presence of other cardiac implants and grafts; Z90.89 Acquired absence of other organs; Z98.890 Other specified postprocedural states; Z79.899 Other long term (current) drug therapy; Z88.0 Allergy status to penicillin; Z88.6 Allergy status to analgesic agent
CPT/HCPCS: 36415; 71046; 80053; 82805; 83880; 85025; 85610; 85730; 86850; 86900; 86901